=== PATIENT | male | born 1945 | race Caucasian/White ===

== ENCOUNTER 2017-07-17 10:37 | Emergency (ER) | payer MEDICARE ==
[~2017-07-17] VITALS: Ht 175.3 cm; Wt 110.0 kg
[~2017-07-17 10:37] MED LIST: ASPI-496 PO; CIPR500T87 PO; DOCU-131 PO; LISI40TA PO; OXYB5TAB7 PO; OXYC-306 PO; [UNRECOGNIZED DRUG - OTHER] PO
[2017-07-17 11:59] VITALS: BP 118/80
== END 2017-07-17 12:01 | disposition home or self-care (01) ==
LOC: ED 11:55
DX: S39.012A Strain of muscle, fascia and tendon of lower back, initial encounter (principal); I10 Essential (primary) hypertension; M51.36 Other intervertebral disc degeneration, lumbar region; M54.41 Lumbago with sciatica, right side; Z87.891 Personal history of nicotine dependence; X58.XXXA Exposure to other specified factors, initial encounter; Y93.89 Activity, other specified; Y99.8 Other external cause status; Y92.89 Other specified places as the place of occurrence of the external cause
CPT/HCPCS: 72110; 99284

== ENCOUNTER → 2017-09-18 | Outpatient (CLI) | payer MEDICARE ==
[~2017-09-18] MED LIST changes: +ATOR40TA78 PO; +CARV6.2512 PO; +CLOP75TA52 PO; +LISINOPRIL 20 MG TABLET ONE; +TAMS-11 PO
== END | disposition home or self-care (01) ==
LOC: CVU 10:58
PROVIDERS: ATTEND Thoracic Surgery (Cardiothoracic Vascular Surgery)
DX: Z01.810 Encounter for preprocedural cardiovascular examination (principal); I65.23 Occlusion and stenosis of bilateral carotid arteries; I08.0 Rheumatic disorders of both mitral and aortic valves; I25.10 Atherosclerotic heart disease of native coronary artery without angina pectoris; I10 Essential (primary) hypertension; I25.2 Old myocardial infarction; E78.00 Pure hypercholesterolemia, unspecified
CPT/HCPCS: 93306; 93880; 93970